=== PATIENT | female | born 1980 | race Caucasian/White ===

== ENCOUNTER 2021-12-27 04:33 | Outpatient (CLI) | payer MEDICAID, MEDICARE | END 2021-12-27 04:34 | disposition critical access hospital (66) | LOC: EMS 04:33 | DX: F95.9 Tic disorder, unspecified (principal) | CPT/HCPCS: A0425; A0429 ==

== ENCOUNTER 2021-12-27 04:50 | Emergency (ER) | payer MEDICAID, MEDICARE ==
--- NOTE | 2021-12-27 04:51 | ED Physician Documentation ---
History of Present Illness - Stated complaint Stated Complaint: DETOX - History obtained from History obtained from: Patient, EMS - History of Present Illness Timing: Today Pain level now: 0 Improved by: nothing Worsened by: no exacerbating factors - Additonal information Additional information: BIBA from [facility] rehab/detox. Patient states to me "I'm detoxing from opiates and meth", last use of both of these was 3 days ago. I ask her how she uses these, and she says she shoots, snorts, ingests, and smokes at various times. She checked into [facility] last night and medications that were given included clonidine, hydroxyzine, methacarbomol, zofran, trazadone, benadryl, and gabapentin. It is not clear why she is being brought to ED from [facility], but EMS indicates there was concern regarding patient's frequent twitching. FSBS by EMS was 84 Review of Systems Constitutional: denies: Fever, Chills, Sweats Cardiac: reports: Reviewed and negative Respiratory: reports: Reviewed and negative GI: reports: Nausea. denies: Abdominal Pain, Vomiting Neurologic: denies: Generalized weakness, Focal weakness, Numbness, Confused, Altered mental status, Headache PD PAST MEDICAL HISTORY - Past Medical History Past Medical History: Yes Endocrine/Autoimmune: HyPOthyroidism - Allergies Allergies/Adverse Reactions: Allergies Allergy/AdvReac Type Severity Reaction Status Date / Time Unable to Assess Allergy Verified 12/27/21 05:56 PD ED PE NORMAL - Vitals Vital signs reviewed: Yes - General General: Well developed/nourished, Other (drowsy at times, awakens to voice. when awake, she has frequent brief spasms; these are not rhythmic nor symmetric) - HEENT HEENT: Atraumatic, PERRL, EOMI, Moist mucous membranes - Neck Neck: Supple, no meningeal sign - Cardiac Cardiac: RRR, No murmur - Respiratory Respiratory: No respiratory distress, Clear bilaterally - Abdomen Abdomen: Soft, Non tender - Neuro Eye Opening: To Voice Motor: Obeys Commands Verbal: Oriented GCS Score: 14 Results - Vitals Vitals: Vital Signs - 24 hr 12/27/21 12/27/21 12/27/21 05:05 05:13 06:40 Temperature 37.2 C Heart Rate 66 72 Respiratory 20 22 18 Rate Blood Pressure 123/82 H 123/82 H 126/68 O2 Saturation 100 100 Oxygen O2 Source Room air PD MEDICAL DECISION MAKING - ED course Complexity details: considered differential, d/w patient ED course: patient says she is withdrawing from opiate and methamphetamine use, last use of both was 3 days ago. She presents from a local rehab/detox facility, presumably for twitching which is seen in ED. It is occasional when she is awake, but she often falls asleep and does not exhibit this behavior when asleep. The spastic twitching is NOT suggestive of seizure (neither symmetric nor rhythmic). It appears more consistent with myoclonic jerks such as can be seen with some forms of withdrawal or dystonic reactions. On reevaluation after 2mg IM lorazepam, she has significantly fewer of these episodes. She is interested in returning to [facility], and at end of my shift ED RN is attempting to arrange getting patient back to [facility].
[2021-12-27] MEDS ORDERED: LORazepam 2 MG/ML VIAL IM STA (05:56)
[2021-12-27 09:13] VITALS: BP 132/68
--- NOTE | 2021-12-27 09:17 | ED Physician Documentation ---
ED Addendum - Addendum Addendum: 12/27/21 09:15 The patient was doing well here. She has occasional muscle twitching b ilaterally with good mentation so does not sound seizure like. Sounds likely muscle twitching and spasms. She apparently had improved with lorazepam given by the overnight physician. Anish evaluated the course in the ER and are accepting of her back. They called the taxi that is now here and able to take her. The disposition: Patient is discharged home in stable condition. Diagnoses: 1. Polysubstance abuse with drug withdrawal 2. Muscle twitching
== END 2021-12-27 09:17 | disposition home or self-care (01) ==
LOC: ED 04:50
DX: F19.139 Other psychoactive substance abuse with withdrawal, unspecified (principal); R25.3 Fasciculation
CPT/HCPCS: 96372; 99283; J2060

== ENCOUNTER 2021-12-29 09:38 | Outpatient (CLI) | payer MEDICARE | END 2021-12-29 09:39 | disposition critical access hospital (66) | LOC: EMS 09:38 | DX: M25.521 Pain in right elbow (principal); R22.9 Localized swelling, mass and lump, unspecified | CPT/HCPCS: A0425; A0429 ==

== ENCOUNTER 2021-12-29 09:58 | Emergency (ER) | payer MEDICAID, MEDICARE ==
[2021-12-29 10:11] VITALS: BP 121/75
[2021-12-29] MEDS ORDERED: SULFAMETH/TRIMETH DS 800/160 MG TABLET PO STA (10:12)
--- NOTE | 2021-12-29 10:15 | ED Physician Documentation ---
PD HPI SKIN - Stated complaint Stated Complaint: R PX ELBOW - Chief complaint Chief Complaint: Wound - History obtained from History obtained from: Patient - Additional information Additional information: The patient comes to the emergency department chief complaint of infected injection site in the right arm. The patient has history of injection drug abuse and has been at rehab. She states she last used about 6 days ago began to notice that there was some redness and had formation in her right antecubital fossa where she had shot up less. Patient states that today, one of the staff at her rehab Facility was looking at her arm and was feeling the swollen area, when it suddenly burst open and purulent drainage came out. The patient states that quite a bit of drainage was expressed but now it seems like not as much is coming out. She states there was not a doctor at the facility, so they sent her here to be evaluated. The patient denies any fevers or chills. She states that she is scheduled to go to a long-term rehabilitation facility today but needed to get this taken care of first. No other complaints at this time. Review of Systems Ten Systems: 10 systems reviewed and negative Constitutional: reports: Reviewed and negative Eyes: reports: Reviewed and negative Ears: reports: Reviewed and negative Nose: reports: Reviewed and negative Throat: reports: Reviewed and negative Cardiac: reports: Reviewed and negative Respiratory: reports: Reviewed and negative GI: reports: Reviewed and negative : reports: Reviewed and negative Skin: reports: Other (Infection, injection site) Musculoskeletal: reports: Reviewed and negative Neurologic: reports: Reviewed and negative Psychiatric: reports: Reviewed and negative Endocrine: reports: Reviewed and negative Immunocompromised: reports: Reviewed and negative PD PAST MEDICAL HISTORY - Past Medical History Endocrine/Autoimmune: HyPOthyroidism - Present Medications Home Medications: Ambulatory Orders Medication Instructions Recorded Confirmed Sulfamethox/Trimeth 800/160 1 each PO BID #14 tablet 12/29/21 [Bactrim Ds 800/160] - Allergies Allergies/Adverse Reactions: Allergies Allergy/AdvReac Type Severity Reaction Status Date / Time Unable to Assess Allergy Verified 12/27/21 05:56 PD ED PE NORMAL - Vitals Vital signs reviewed: Yes - General General: Alert and oriented X 3, No acute distress, Well developed/nourished - HEENT HEENT: Atraumatic, PERRL, EOMI, Moist mucous membranes - Neck Neck: Supple, no meningeal sign - Cardiac Cardiac: Strong equal pulses - Respiratory Respiratory: No respiratory distress - Derm Derm: Warm and dry, Other (Mild erythema and induration in antecubital fossa with 2 mm "hole" centrally located. Small amounts of serosanguineous discharge with occasional purulent flecking expressible. Mild tenderness. No fluctuance.) - Extremities Extremities: No deformity - Neuro Neuro: Alert and oriented X 3 - Psych Psych: Normal mood, Normal affect Results - Vitals Vitals: Vital Signs - 24 hr 12/29/21 09:59 Temperature 36.9 C Heart Rate 83 Respiratory 18 Rate Blood Pressure 121/75 O2 Saturation 97 Oxygen O2 Source Room air PD MEDICAL DECISION MAKING - ED course Complexity details: considered differential, d/w patient ED course: The patient's wound site appeared mildly infected, and I felt she should be started on antibiotics. Most of the fluid seemed to have drained out already, and what was left was mostly serous or serosanguineous, with occasional mild amounts of purulent material. I did not feel she needed I&D. The patient was given a dose of Bactrim here. I have given her prescription for the same. We have discussed the usual indications for return Departure - Departure Disposition: Home, Self Care Clinical Impression: Infection of injection site Qualifiers: Encounter type: initial encounter Qualified Code(s): T80.29XA - Infection following other infusion, transfusion and therapeutic injection, initial encou nter Condition: Stable Instructions: ED Staph Infec Abx Tx Only Prescriptions: Sulfamethox/Trimeth 800/160 [Bactrim Ds 800/160] 1 each PO BID #14 tablet
== END 2021-12-29 10:40 | disposition home or self-care (01) ==
LOC: EDUNIT# → ED 09:58
DX: T80.29XA Infection following other infusion, transfusion and therapeutic injection, initial encounter (principal); L08.89 Other specified local infections of the skin and subcutaneous tissue
CPT/HCPCS: 99282; 99283; A9270